=== PATIENT | female | born 1945 | race Caucasian/White ===

== ENCOUNTER → 2016-06-12 | Outpatient (CLI) | payer MEDICARE ==
[~2016-06-12] MED LIST: ATENOLOL50 MG PO; ECOTRIN325 MG PO; FENOFIBRATE145 MG PO; FISH OIL 1,0001 EAC3 PO; LORTAB 10-5001 EACH PO; MULTI-VITAMIN1 EAC1 PO
--- NOTE | ~2016-06-12 | CR7 ---
[facility] A Service of [facility] [place] & [facility] RADIOLOGY TEXT RESULTS PATIENT: EDEL DUEÑAS LOCATION: [facility] : 49 UNIT #: [id number] AGE: [address]: Avni Hess MD SEX: F ORDER DR: [id number] [facility] [address] [place], [place] [address] [id number] O MR#: [id number] Acc #: [id number] NAME: EDEL DUEÑAS : 1945 SEX: F STUDY DATE/TIME: 06/12/2016 11:51 UNIT: [facility] ROOM: STUDY DESCRIPTION: CR Abdomen Single AP View Attending Physician: Avni Hess M.D. Referring Physician: Avni Hess M.D. Ordering Physician: Avni Hess M.D. Primary Care Physician: Toño Vasques M.D. MEDICAL IMAGING REPORT This report is preliminary unless electronic signature is present EXAM Abdomen HISTORY Follow-up kidney stones which have been known for at least a month. COMPARISON CT scan, 05/08/2016. Comparison abdomen image 11/07/2013. FINDINGS A supine view of the abdomen shows multiple calcifications consistent with kidney stones. On the left there is a 3.6 cm stone and adjacent to it is a 1.1 cm stone which are in the mid portion of the kidney. In the lower pole of the left kidney there are several stones clustered together in a 2.0 cm area that measured 5.0-6.0 mm each and there is a probable proximal ureteral stone measuring 16.0 mm in diameter. This however was present 11/07/2013 and it has not changed its position. There are also multiple small stones in the right kidney numbering 8-10. They all measure 5.0 mm or less. No distal ureteral stones are identified. The CT scan from 05/08/2016 actually shows that the left kidney has two ureters and the oval 16.0 mm stone is in the ureter serving the superior pole of the kidney which is atrophic. IMPRESSION 1. There appear to be multiple bilateral renal stones without significant change from old studies. There is a 16.0 mm stone on the left that is apparently in proximal ureter that serves the upper pole of the left kidney which was seen on a CT scan 05/08/2016. 2. The bowel gas pattern is normal. [facility] A Service of [facility] RADIOLOGY TEXT RESULTS PATIENT: EDEL DUEÑAS LOCATION: [facility] : [birth year] UNIT #: [id number] AGE: [address]: Avni Hess MD SEX: F ORDER DR: Dictated by... Konstantin Purcell M.D. THIS IS AN ELECTRONICALLY VERIFIED REPORT Konstantin Purcell M.D. at 06/12/2016 4:55 PM Mackenzie TD: 06/12/2016 15:18 JOB #: [id number] MEDICAL IMAGING REPORT COPY
== END | disposition home or self-care (01) ==
LOC: CRAD 11:38
DX: N20.0 Calculus of kidney (principal)
CPT/HCPCS: 74000

== ENCOUNTER → 2016-10-01 | Outpatient (CLI) | payer MEDICARE ==
--- NOTE | ~2016-10-01 | CR7 ---
[facility] A Service [facility] RADIOLOGY TEXT RESULTS PATIENT: EDEL DUEÑAS LOCATION: [facility] : 49 UNIT #: [id number] AGE: [address]: Avni Hess MD SEX: F ORDER DR: [id number] [facility] [address] [place], [place] [address] [id number] O MR#: [id number] Acc #: [id number] NAME: EDEL DUEÑAS : 1945 SEX: F STUDY DATE/TIME: 10/01/2016 10:26 UNIT: [facility] ROOM: STUDY DESCRIPTION: CR Abdomen Single AP View Attending Physician: Avni Hess M.D. Referring Physician: Avni Hess M.D. Ordering Physician: Avni Hess M.D. Primary Care Physician: Toño Vasques M.D. MEDICAL IMAGING REPORT This report is preliminary unless electronic signature is present EXAM AP of the abdomen INDICATIONS Left-sided kidney stone. Follow up. COMPARISON STUDIES 06/12/2016. FINDINGS Left double-J ureteral stent in place. There are multiple large stones in both kidneys and a large stone in the proximal left ureter adjacent to the stent. The stone in the ureter measures about 1.9 cm in greatest dimension. The largest stone in the right kidney measures 1.3 cm and largest stone in the left kidney measures 1.4 cm. The stone burden on the left is significantly decreased. There is some metallic artifact projecting just above the ureteral stent on the left which appears to represent embolization coils. IMPRESSION Bilateral renal stones as well as a large stone in the proximal left ureter. Left double-J ureteral stent. Dictated by... Arvind Gonzalez M.D. THIS IS AN ELECTRONICALLY VERIFIED REPORT Arvind Gonzalez M.D. at 10/02/2016 7:33 AM ARS/pcl TD: 10/01/2016 22:35 [facility] A Service [facility] RADIOLOGY TEXT RESULTS PATIENT: EDEL DUEÑAS LOCATION: [facility] #: [id number] : 49 UNIT #: [id number] AGE: [address]: Avni Hess MD SEX: F ORDER DR: JOB #: [id number] MEDICAL IMAGING REPORT Page 1 of 1 COPY
== END | disposition home or self-care (01) ==
LOC: CRAD 10:11
DX: N20.2 Calculus of kidney with calculus of ureter (principal); Z96.0 Presence of urogenital implants
CPT/HCPCS: 74000

== ENCOUNTER → 2016-12-05 | Outpatient (CLI) | payer MEDICARE ==
--- NOTE | ~2016-12-05 | CR7 ---
[facility] A Service of [facility] & [facility] RADIOLOGY TEXT RESULTS PATIENT: EDEL DUEÑAS LOCATION: [facility] : 49 UNIT #: [id number] AGE: [address]: Avni Hess MD SEX: F ORDER DR: [id number] [facility] [address]. [place], [place] [address] [id number] O MR#: [id number] Acc #: [id number] NAME: EDEL DUEÑAS : 1945 SEX: F STUDY DATE/TIME: 12/05/2016 11:23 UNIT: [facility] ROOM: STUDY DESCRIPTION: CR Abdomen Single AP View Attending Physician: Avni Hess M.D. Referring Physician: Avni Hess M.D. Ordering Physician: Avni Hess M.D. Primary Care Physician: Toño Vasques M.D. MEDICAL IMAGING REPORT This report is preliminary unless electronic signature is present EXAM AP abdomen, 12/05/2016. HISTORY Kidney stone followup. Stent placement July 2016. COMPARISON AP abdomen 10/02/2016 FINDINGS Single left ureteral stent remains in place. Large stone in the vicinity of the proximal left ureter measures 1.9 cm. 2 stones are seen within the left kidney, in the mid pole, measuring 1.2 cm and in the lower pole measuring about 1 cm. 1 of the stones in the left lower renal pole appears resolved since prior. What appears to be a partial staghorn or calyceal stone in the right lower renal pole measures 2.7 cm in aggregate and is probably unchanged when compared to prior. A coarse calcification in the right hemipelvis, thought to be outside of the region of the ureter or bladder, is unchanged. Embolization coils present in the left upper quadrant of the abdomen. IMPRESSION 1. One of the stones in the descending left lower renal pole is no longer present. The other bilateral renal stones appear unchanged, compared to 10/01/2016, including a 1.9-cm stone aggregate in the vicinity of the proximal left ureter. 2. Left ureteral stent appears unchanged in position. Dictated by... Alaina London M.D. [facility] A Service of [facility] & [facility] RADIOLOGY TEXT RESULTS PATIENT: EDEL DUEÑAS LOCATION: [facility] : 49 UNIT #: [id number] AGE: [address]: Avni Hess MD SEX: F ORDER DR: THIS IS AN ELECTRONICALLY VERIFIED REPORT Alaina London M.D. at 12/06/2016 12:27 PM ESME/william TD: 12/05/2016 18:42 JOB #: [id number] MEDICAL IMAGING REPORT Page 1 of 1 COPY
== END | disposition home or self-care (01) ==
LOC: CRAD 10:45
DX: N20.0 Calculus of kidney (principal); Z96.0 Presence of urogenital implants
CPT/HCPCS: 74000